=== PATIENT | male | born 1970 | race Caucasian/White ===

== ENCOUNTER 2018-09-09 10:02 | Outpatient (CLI) | payer BC | END 2018-09-09 10:03 | disposition home or self-care (01) | LOC: CTENTCT 10:02 | PROVIDERS: ATTEND Otolaryngology Plastic Surgery within the Head & Neck | DX: J32.8 Other chronic sinusitis (principal) | CPT/HCPCS: 70486 ==

== ENCOUNTER 2018-09-29 21:35 | Inpatient (IN) | payer BC ==
--- NOTE | 2018-09-29 22:11 | RAD ---
EXAM: Portable chest PROVIDED CLINICAL HISTORY: Chest pain COMPARISON: None FINDINGS: Cardiac and mediastinal silhouette is within normal limits. No focal consolidation, pleural fluid or pneumothorax evident. IMPRESSION: No evidence for an acute cardiopulmonary process.
[2018-09-29 22:15] LABS: #Basophils 0.1 thou/uL (0.0-0.2); #Eosinphils 0.3 thou/uL (0.0-0.7); #Lymphocytes 2.7 thou/uL (1.20-3.40); #Monocytes 1.1 thou/uL (0.11-0.59); #Neutrophils 7.6 thou/uL (1.40-6.50); %Basophils 0.8 % (0.0-1.0); %Eosinophils 2.6 % (0.0-10.0); %Lymphocytes 22.7 % (21.0-51.0); %Monocytes 9.1 % (0.0-10.0); %Neutrophils 64.7 % (42.0-75.0); Hemoglobin 16.6 g/dL (14.0-18.0); Mean Corpuscular HGB CONC 33.5 g/dL (32.0-36.0); Mean Corpuscular Volume 95.5 fL (78.0-98.0); Platelet Count 245 thou/uL (130-400); RBC Distribution Width 11.6 % (11.5-14.5); Red Blood Cell (RBC) Count 5.19 mill/uL (4.70-6.10); White Blood Cell (WBC) Count 11.7 thou/uL (4.8-10.8)
[2018-09-29 22:39] LABS: ALT (SGPT) 17 U/L (8-55); AST (SGOT) 18 U/L (5-34); Albumin 4.4 g/dL (3.5-5.0); Alkaline Phosphatase 83 U/L (40-150); Anion Gap 11 mmol/L (10-20); BUN (Urea Nitrogen) 17 mg/dL (8.9-20.6); Bilirubin, Total 0.3 mg/dL (0.2-1.2); CK (CPK) 101 U/L (30-200); Calc. Creatinine Clearance 0 mL/min (70-130); Calcium 9.4 mg/dL (7.8-10.44); Carbon Dioxide 28 mmol/L (22-29); Chloride 103 mmol/L (98-107); Estimated GFR-MDRD 81; Globulin 2.9 g/dL (2.4-3.5); Glucose 94 mg/dL (70-105); Lipase 42 U/L (8-78); Potassium 3.7 mmol/L (3.5-5.1); Protein, Total 7.3 g/dL (6.0-8.3); Sodium 138 mmol/L (136-145)
[2018-09-30 00:37] VITALS: BMI 26.8
[2018-09-30 01:40] LABS: Troponin I Less than 0.010 ng/mL (< 0.028)
[2018-09-30 05:06] LABS: Troponin I Less than 0.010 ng/mL (< 0.028)
[2018-09-30] MEDS ORDERED: Acetaminophen 325 MG TAB PO PRN ×2 (08:55→16:19)
[2018-09-30] MEDS ORDERED: Famotidine/PF 20 mg/2ml Vial SLOW IVP SCH (09:00)
[2018-09-30] MEDS ORDERED: Azithromycin 250 MG TAB PO SCH (09:00)
[2018-09-30] MEDS ORDERED: Enoxaparin Sodium 40 MG/0.4 ML SYRINGE SC SCH (09:00)
[2018-09-30] MEDS ORDERED: Famotidine 20 MG TAB PO SCH (09:00)
[2018-09-30] MEDS ORDERED: Aspirin Chewable 81 MG TAB PO SCH (09:46)
[2018-09-30 09:47] LABS: Cardiac Risk 3.4 (Less than 4.5)
[2018-09-30] MEDS ORDERED: Diazepam 5 MG TAB PO SCH (10:00)
[2018-09-30] MEDS ORDERED: Sodium Chloride 0.9% 1,000 ML IV SCH (10:00)
--- NOTE | 2018-09-30 10:01 | HP ---
PRIMARY CARE PHYSICIAN: Walt Wells MD CHIEF COMPLAINT: Chest pain, high blood pressure. HISTORY OF PRESENT ILLNESS: Mr. Lawson is a 48-year-old male, who reports that he has been having intermittent chest pain primarily when he lies down at night. Reports that he was on a small amount of blood pressure medications several years ago, but with lifestyle modifications, he was able to come off that. reports that his blood pressure is in the 120s systolically typically. He went to bed last night around 8, noticed that he felt really weird. He says there is chest pressure that radiates up his jaw and across his chest. He denied any shortness of breath with it. Denied any nausea, any diaphoresis. Reports this is typical for him when he has these episodes. Family thought that initially he was having some GI, GERD type symptoms, but it has not been getting better with the Nexium the day he has been taking. Last night when he had this episode he said it was worse than normal. He got up his , took his blood pressure. 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 They were going to the emergency room and stopped by the local fire station, hooked him up to the EKG. She saw no changes at that point. His pressure was still high, so they loaded him up into the ambulance and brought him to [facility]. In the ambulance ride, they gave him an aspirin and some nitroglycerin and that brought his blood pressure down. In the emergency room, the EKG, normal sinus rhythm, beats per minute 95. T-waves V2 are biphasic. Troponins x3 undetectable. Lab largely unremarkable. But due to the EKG findings and for the [facility], the patient was admitted for a Cardiology consult and further risk stratification. PAST MEDICAL HISTORY: Seasonal allergies. Recently, had bilateral tubes placed in his ears for congestion. Started allergy shots. Hypertension, which resolved after lifestyle changes. PAST SURGICAL HISTORY: Tubes replaced. FAMILY HISTORY: Both mom and dad have coronary artery disease, hypertension. SOCIAL HISTORY: He is a former smoker, but stopped more than 10 years ago. No alcohol or drugs. REVIEW OF SYSTEMS: Chest pain primarily when he lies down, intermittent over the last 2 months. All other systems were reviewed and are negative unless mentioned in the HPI. PHYSICAL EXAMINATION: VITAL SIGNS: Blood pressure is 130/92, pulse is 83, respirations are 19, temperature is 98.5, O2 saturations are 95% on room air. CONSTITUTIONAL: The patient is in no apparent distress. He is alert and oriented to person, place, and time. HEENT: Head is atraumatic and normocephalic. Eyes; eyelids are normal to inspection. Pupils are equally round and reactive to light. ENT; mouth exam is normal. Mucous membranes are moist. NECK: Normal range of motion. Trachea is midline. RESPIRATORY: Chest, breath sounds are clear. Chest movement is symmetrical. CARDIOVASCULAR: Regular heart rate and rhythm. Heart sounds are normal. ABDOMEN: Nontender. Bowel sounds are heard. BACK: Normal range of motion. Normal inspection. No CVA tenderness. EXTREMITIES: Upper extremities, normal inspection. Normal range of motion. Radial pulses are normal. Lower extremity, normal inspection, normal range of motion. Pedal pulses are equal. There is no edema noted. NEURO: The patient is oriented to person, place, and time. Speech is normal. No focal motor or sensory deficits. PSYCHIATRIC: He has a normal affect. ASSESSMENT AND PLAN: 1. Chest pain, changes on the EKG. Troponins x3 are undetectable. We have asked Dr. Merino to consult to help us risk stratify due to the type of EKG changes. We will check fasting lipids, TSH. 2. History of hypertension, but he has not been on any medications for several years. We will trend. 3. Gastrointestinal and deep venous thrombosis prophylaxis have been started. 4. Hospital course dependent on clinical findings. Job ID: [id number]
[2018-09-30] MEDS ORDERED: Aspirin Chewable 81 MG TAB ONE (10:02)
--- NOTE | 2018-09-30 10:30 | CON ---
DATE OF CONSULTATION: 09/30/2018 REASON FOR CONSULTATION: Chest pain, abnormal EKG. HISTORY OF PRESENT ILLNESS: Mr. Ernesto Lawson is a 48-year-old gentleman. The patient has been having chest pain for several weeks, it is substernal and goes into his arms. He had an episode last night that was relatively intense and finally resolved. He had another episode early this morning while here in the hospital. The patient otherwise has been active and healthy. PAST MEDICAL HISTORY: The past history is esophageal reflux. He is on proton pump inhibitors. He is on Z-Pawan for some nasal congestion. FAMILY HISTORY: His father had heart disease in his early 60s. SOCIAL HISTORY: He smoked in the remote past, but none recently. 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 No diabetes. No other medicines. ALLERGIES: NONE KNOWN. REVIEW OF SYSTEMS: CONSTITUTIONAL: No significant weight gain or loss. VISION: No changes. HEARING: No changes. PULMONARY: No cough or wheezing. GASTROINTESTINAL: No nausea, vomiting, or diarrhea. SKIN: No rashes. NEUROLOGIC: No unilateral weakness or numbness. PSYCHIATRIC: No unusual depression or anxiety. HEMATOLOGIC: No unusual bruising. PHYSICAL EXAMINATION: GENERAL: This is a pleasant 48-year-old gentleman, resting comfortably, in no distress. VITAL SIGNS: Blood pressure 121/85. Pulse 75 and regular. LUNGS: Clear. CARDIAC: Normal S1 and normal S2. ABDOMEN: Soft and nontender. EXTREMITIES: Warm and dry. No clubbing, cyanosis, or edema. He has good femoral and popliteal pulses. Pedal pulses are palpable. SKIN: Warm and dry. PERTINENT LABORATORY: Cardiac enzymes were negative. LDL cholesterol from 2015 was 109. EKG did reveal biphasic T-waves in V2, otherwise normal EKG. ASSESSMENT: 1. Substernal pain going into both arms were highly suspicious for unstable angina. 2. Abnormal EKG. 3. Positive family history of heart disease. 4. Remote history of smoking. PLAN: Proceed to cardiac catheterization, especially in view of the recurrent pain this morning. Discussed risk of stroke, heart attack, iodine allergy, loss of blood supply to leg or kidney, stent thrombosis, stent restenosis, vessel perforation. He understands and wished to proceed. Job ID: [id number]
[2018-09-30] MEDS ORDERED: Fentanyl 100 MCG/2 ML VIAL ONE ×2 (11:00→16:26)
[2018-09-30] MEDS ORDERED: Midazolam HCl 2 mg/2 ml Vial ONE (11:00)
[2018-09-30] MEDS ORDERED: Nitroglycerin 0.4 MG TAB (25 Tab Bottle) SL PRN (11:24)
[2018-09-30] MEDS ORDERED: Sodium Chloride 0.9% 200 ML IV PRN (11:24)
[2018-09-30] MEDS ORDERED: Acetaminophen/Codeine 30-300mg Tablet PO PRN ×2 (11:24)
[2018-09-30] MEDS ORDERED: Lidocaine 1% (PF) 30 ML VIAL ONE (11:31)
[2018-09-30] MEDS ORDERED: Nitroglycerin 100MG/250ML BOT 250 ML ONE (11:31)
[2018-09-30] MEDS ORDERED: Hydrocortisone Sod Succ/PF 100 mg/2 ml Vial ONE (11:31)
[2018-09-30] MEDS ORDERED: diphenhydrAMINE 50 MG/ML VIAL ONE (11:31)
[2018-09-30] MEDS ORDERED: Albumin 5% 0 ML ONE (11:41)
[2018-09-30] MEDS ORDERED: Heparin 10,000 UNITS/1 ML VIAL 30,000 UNITS in Sodium Chloride 0.9% 1,000 ML FS SCH (12:00)
--- NOTE | 2018-09-30 12:17 | CON ---
DATE OF CONSULTATION: HISTORY OF PRESENT ILLNESS: This is a 48-year-old gentleman with presentation of chest and neck pain with negative cardiac enzymes and perhaps biphasic T-wave in V2. Because of his symptoms of pressure going into his neck and arms, he underwent cardiac catheterization today demonstrating a high-grade lesion of his LAD. PAST MEDICAL HISTORY: Includes gastroesophageal reflux disease, nasal congestion and allergies and remote smoking history. He has had some mild hypertension that was initially treated; however, with dietary changes. He has not required any medicine. PAST SURGICAL HISTORY: Includes PE tubes placed. SOCIAL HISTORY: He is . 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 REVIEW OF SYSTEMS: Primarily upper airway congestion for which he has begun some shots for allergies and was scheduled to have some nasal surgery next month with Dr. Echevarria. PHYSICAL EXAMINATION: GENERAL: On examination, he is alert and cooperative gentleman, appearing his stated age. NECK: No carotid bruits. LUNGS: Clear to auscultation. CARDIAC: Regular rate and rhythm. No murmurs. ABDOMEN: Soft, nontender. No masses. No organomegaly. EXTREMITIES: He has a dressing on the right groin with palpable pedal pulses. No peripheral edema. IMAGING STUDIES: I have reviewed his cardiac catheterization. PLAN: At this time is for coronary artery bypass grafting, ACOSTA to the LAD, possible off pump and informed consent has been obtained. Job ID: [id number]
[2018-09-30] MEDS ORDERED: Iopamidol 370 76% 100 ML VIAL ONE (12:32)
[2018-09-30] MEDS ORDERED: Aminocaproic Acid 5 GM/20 ML VIAL ONE (14:03)
[2018-09-30] MEDS ORDERED: Heparin 30,000 units/30 ml VIAL ONE (14:03)
[2018-09-30] MEDS ORDERED: Papaverine 60 MG/2 ML VIAL ONE (14:03)
[2018-09-30] MEDS ORDERED: PHENYLEPHRINE-NS 100 MCG/ML 10 ML SYRINGE ONE (14:03)
[2018-09-30] MEDS ORDERED: ePHEDrine 50 MG/ML VIAL ONE (14:03)
[2018-09-30] MEDS ORDERED: PROPOFOL 200 MG/20 ML VIAL ONE (14:03)
[2018-09-30] MEDS ORDERED: Calcium Chloride 1 GM/10 ML Abboject SYRINGE ONE (14:03)
[2018-09-30] MEDS ORDERED: Protamine Sulfate 250 MG/25 ML VIAL ONE (14:03)
[2018-09-30] MEDS ORDERED: Rocuronium Bromide 10 MG/ML (10ML VIAL) ONE (14:03)
[2018-09-30] MEDS ORDERED: Lidocaine 1% PF 5 ML VIAL ONE (14:03)
[2018-09-30] MEDS ORDERED: Thrombin 5000 UNITS/5 ML VIAL ONE (14:03)
[2018-09-30 16:11] LABS: Actual Bicarbonate (HCO3a) 22.1 mEq/L (22-28); Base Excess (BEa) -5.1 mEq/L (-2.0 to +3.0); CO2 Tension 49.5 mmHg (35.0-45.0); Calcium, Ionized 1.12 mmol/L (1.12-1.30); Carboxyhemoglobin (COHb) 1.2 gm% (0.0-3.0); Hemoglobin (Hb) 14.6 g/dL (14.0-18.0); O2 Tension (PaO2) 102.5 mmHg (80.0-100.0); Potassium - ABG Lab 4.02 mmol/L (3.70-5.30); pH, Arterial 7.27 (7.35-7.45)
[2018-09-30 16:12] LABS: Puncture Site ALINE
[2018-09-30 16:13] LABS: ALV-art Gradient 192.125 (0-20)
[2018-09-30] MEDS ORDERED: hydrALAZINE 20 MG/ML VIAL SLOW IVP PRN (16:19)
[2018-09-30] MEDS ORDERED: Promethazine HCl 25 MG/ML VIAL IM PRN (16:19)
[2018-09-30] MEDS ORDERED: Fentanyl 100 MCG/2 ML VIAL SLOW IVP PRN (16:19)
[2018-09-30] MEDS ORDERED: Bisacodyl 10 MG SUPP PR PRN (16:19)
[2018-09-30] MEDS ORDERED: HYDROcodone/Acetaminophen 5/325 mg Tablet PO PRN (16:19)
[2018-09-30] MEDS ORDERED: Bisacodyl 5 MG TAB PO PRN (16:19)
[2018-09-30] MEDS ORDERED: niCARdipine 25 MG in Sodium Chloride 0.9% 250 ML 250 ML IVPB PRN (16:19)
[2018-09-30] MEDS ORDERED: Norepinephrine 8 MG in Sodium Chloride 0.9% 250 ML 242 ML IVPB PRN (16:19)
[2018-09-30] MEDS ORDERED: Hetastarch 6% 500 ML 500 ML IVPB PRN (16:19)
[2018-09-30] MEDS ORDERED: Post-Op Insulin Drip Protocol IVPB ONE (16:19)
[2018-09-30] MEDS ORDERED: DOPamine 400 MG/D5W 250 ML 250 ML IVPB PRN (16:19)
[2018-09-30] MEDS ORDERED: Morphine 2 MG/ML SYRINGE SLOW IVP PRN (16:19)
[2018-09-30] MEDS ORDERED: Mag-Al 1200 mg/1200 mg/30 ML UDCUP PO PRN (16:19)
[2018-09-30] MEDS ORDERED: Potassium Chloride 20 MEQ/100 ML PREMIX BAG IVPB PRN (16:19)
[2018-09-30] MEDS ORDERED: Nitroglycerin 50 MG/250 ML BOT 250 ML IVPB PRN (16:19)
[2018-09-30] MEDS ORDERED: Guaifenesin DM 100-10/5 ML UDCUP PO PRN (16:19)
[2018-09-30] MEDS ORDERED: Nitroglycerin 50 MG/250 ML BOT 250 ML ONE (16:24)
[2018-09-30] MEDS: Fentanyl 100 MCG/2 ML VIAL SLOW IVP PRN ×3 (16:29→22:10)
[2018-09-30 16:30] LABS: #Eosinphils 0.1 thou/uL (0.0-0.7); #Monocytes 0.7 thou/uL (0.11-0.59); %Basophils 0.1 % (0.0-1.0); %Eosinophils 0.4 % (0.0-10.0); %Lymphocytes 6.2 % (21.0-51.0); %Neutrophils 89.4 % (42.0-75.0); Hemoglobin 13.9 g/dL (14.0-18.0); Mean Corpuscular HGB CONC 32.8 g/dL (32.0-36.0); Mean Corpuscular Hemoglobin 31.4 pg (27.0-31.0); Mean Corpuscular Volume 95.7 fL (78.0-98.0); Mean Platelet Volume 8.2 fL (7.4-10.4); Platelet Count 195 thou/uL (130-400); RBC Distribution Width 11.3 % (11.5-14.5); Red Blood Cell (RBC) Count 4.42 mill/uL (4.70-6.10); White Blood Cell (WBC) Count 16.8 thou/uL (4.8-10.8)
[2018-09-30] MEDS ORDERED: HUMULIN R 100 UNITS in Sodium Chloride 0.9% 100 ML IVPB SCH (16:33)
[2018-09-30] MEDS ORDERED: Dextrose 50% Abboject 50 ML SYRINGE SLOW IVP PRN (16:33)
[2018-09-30] MEDS ORDERED: Dextrose 5% in Water 1,000 ML IV PRN (16:33)
[2018-09-30] MEDS ORDERED: Insulin Regular 300 UNITS/3 ML VIAL SC PRN (16:33)
[2018-09-30 16:38] LABS: INR-International Normal Ratio 1.1; PTT 27.9 SEC (22.9-36.1); Prothrombin Time 14.1 SEC (12.0-14.7)
[2018-09-30 16:45] LABS: Anion Gap 11 mmol/L (10-20); BUN (Urea Nitrogen) 12 mg/dL (8.9-20.6); Calc. Creatinine Clearance 128 mL/min (70-130); Calcium 8.3 mg/dL (7.8-10.44); Carbon Dioxide 23 mmol/L (22-29); Chloride 107 mmol/L (98-107); Estimated GFR-MDRD Greater than 90; Glucose 163 mg/dL (70-105); Potassium 3.9 mmol/L (3.5-5.1); Sodium 137 mmol/L (136-145)
--- NOTE | 2018-09-30 16:51 | EKG ---
Test Reason : STAT Blood Pressure : / mmHG Vent. Rate : 072 BPM Atrial Rate : 072 BPM P-R Int : 160 ms QRS Dur : 092 ms QT Int : 392 ms P-R-T Axes : 046 024 057 degrees QTc Int : 429 ms Normal sinus rhythm Normal ECG No previous ECGs available Confirmed by DR. Nelda RAMIREZ ([id number]) on 09/30/2018 4:51:03 PM Referred By: COGENT Confirmed By:DR. Nelda RAMIREZ
[2018-09-30 17:26] LABS: Actual Bicarbonate (HCO3a) 19.7 mEq/L (22-28); Base Excess (BEa) -6.3 mEq/L (-2.0 to +3.0); CO2 Tension 40.8 mmHg (35.0-45.0); Calcium, Ionized 1.11 mmol/L (1.12-1.30); Carboxyhemoglobin (COHb) 0.9 gm% (0.0-3.0); Hemoglobin (Hb) 15.1 g/dL (14.0-18.0); Potassium - ABG Lab 3.81 mmol/L (3.70-5.30)
[2018-09-30 17:27] LABS: Puncture Site ALINE
--- NOTE | 2018-09-30 17:33 | RAD ---
CHEST ONE VIEW: 09/30/18 HISTORY: Post open heart surgery. COMPARISON: Radiograph of prior day. FINDINGS: The patient is now intubated. Endotracheal tube tip just above the level of the lori approximately 1 cm. There are small effusions. Mild compressive atelectasis both lower lobes. Subclavian central v enous catheter tip sits at the right atrium. No pneumothorax. Multiple mediastinal drains are present. IMPRESSION: 1. Endotracheal tube tip above the lori approximately 1 cm. 2. Layering bilateral pleural effusions. 3. Expected postoperative findings. POS: HOME
[2018-09-30] MEDS: Magnesium 2 GM/50 ML 2 GM in Premix Bag 1 BAG IVPB SCH ×2 (17:52→17:53)
[2018-09-30] MEDS: Ketorolac Tromethamine 30 MG/ML VIAL IVP SCH ×2 (18:12→23:57)
[2018-09-30] MEDS: Lactated Ringer's 1,000 ML IV SCH (18:14)
[2018-09-30] MEDS ORDERED: Simvastatin 20 MG TAB PO SCH (21:00)
[2018-09-30] MEDS: Famotidine/PF 20 mg/2ml Vial SLOW IVP SCH (21:01)
[2018-09-30] MEDS: Ondansetron PF 4 MG/2 ML Vial IVP PRN (21:26)
[2018-09-30] MEDS: CEFAZOLIN 2 GM in Premix Bag 1 BAG IVPB SCH (22:08)
[2018-09-30 22:29] LABS: Potassium 4.1 mmol/L (3.5-5.1)
[2018-10-01] MEDS: Fentanyl 100 MCG/2 ML VIAL SLOW IVP PRN (02:24)
[2018-10-01 03:54] LABS: Anion Gap 11 mmol/L (10-20); BUN (Urea Nitrogen) 12 mg/dL (8.9-20.6); Calc. Creatinine Clearance 146 mL/min (70-130); Calcium 8.7 mg/dL (7.8-10.44); Carbon Dioxide 25 mmol/L (22-29); Chloride 107 mmol/L (98-107); Estimated GFR-MDRD Greater than 90; Glucose 127 mg/dL (70-105); Potassium 4.3 mmol/L (3.5-5.1); Sodium 139 mmol/L (136-145)
[2018-10-01 04:31] LABS: Band 11 % (5-11); Hemoglobin 13.5 g/dL (14.0-18.0); Lymphocytes 9 % (21-51); MDiff Complete? YES; Mean Corpuscular HGB CONC 31.7 g/dL (32.0-36.0); Mean Corpuscular Hemoglobin 30.2 pg (27.0-31.0); Mean Corpuscular Volume 95.2 fL (78.0-98.0); Mean Platelet Volume 8.4 fL (7.4-10.4); Monocytes 4 % (0-10); Neutrophil 75 % (42-75); Platelet Count 235 thou/uL (130-400); RBC Distribution Width 11.4 % (11.5-14.5); Reactive Lymphocytes 1 % (0-10); Red Blood Cell (RBC) Count 4.47 mill/uL (4.70-6.10); White Blood Cell (WBC) Count 20.3 thou/uL (4.8-10.8)
[2018-10-01] MEDS: Ketorolac Tromethamine 30 MG/ML VIAL IVP SCH ×4 (06:09→23:43)
--- NOTE | 2018-10-01 08:01 | RAD ---
Chest one view HISTORY: Chest pain. COMPARISON: 09/30/2018. FINDINGS: Cardiac silhouette is magnified and upper limits of normal in size. Pulmonary vasculature i s upper limits of normal and accentuated by shallow inspiration. Patient is rotated rightward. Tracheal catheter no longer visualized remains in place. Postoperative changes mediastinum are appare nt. No evidence of pneumothorax. IMPRESSION: Interval extubation. Otherwise stable postoperative appearance of the chest.
--- NOTE | 2018-10-01 08:43 | OP ---
DATE OF PROCEDURE: 09/30/2018 PREOPERATIVE DIAGNOSIS: Coronary artery disease. PROCEDURES PERFORMED: Off-pump coronary artery bypass graft x1, left internal mammary artery to left anterior descending, good quality left internal mammary artery, good flow, good quality left anterior descending, distal to the last diagonal probably measured 2 mm. DELIVERY ANALYST: Daniel Prince MD TRANSFUSION: None. DESCRIPTION OF PROCEDURE: After adequate anesthesia had been obtained, midline sternotomy was performed after prepping and draping. The right pleura was entered distally and closed over a drain tube at the conclusion of the case. The left pleura was entered in one area while harvesting the left internal mammary artery. A 15,000 units of heparin were given after the mammary harvest and it was divided distally, treated with intraluminal papaverine and passed posterior to the thymus gland through an incision in the pericardium. A lap was placed behind the heart. Following which, the octopus retractor was used to stabilize the LAD and a loop was placed proximal to the diagonal and then, an anastomosis completed with a mammary to LAD using running 7-0 Prolene suture. After completing the suture line, flow was restored. Mammary pedicle was secured to the myocardium. Protamine was given to reverse the heparin. Following which, pericardium was reapproximated at the diaphragm. The sternum was reapproximated over mediastinal and bilateral pleural drains with #7 interrupted wire using vancomycin paste on the sternal edges, platelet rich blood and platelet poor plasma. Subcutaneous tissue and skin were closed in layers. Job ID: [id number]
[2018-10-01] MEDS: Lactated Ringer's 1,000 ML IV SCH ×2 (08:50→19:31)
[2018-10-01] MEDS: Famotidine/PF 20 mg/2ml Vial SLOW IVP SCH ×2 (08:50→20:49)
[2018-10-01] MEDS ORDERED: Aspirin Chewable 81 MG TAB PO SCH (09:00)
[2018-10-01] MEDS: HYDROcodone/Acetaminophen 5/325 mg Tablet PO PRN ×3 (09:32→20:46)
--- NOTE | 2018-10-01 09:34 | PRG ---
DATE OF SERVICE: 10/01/2018 SUBJECTIVE: Mr. Lawson underwent bypass surgery yesterday. He is doing great today. OBJECTIVE: VITAL SIGNS: His blood pressure is in the one teens systolic, pulse is 90s and it is regular. LUNGS: Clear. CARDIAC: Normal S1, normal S2. ABDOMEN: Soft, nontender. EXTREMITIES: There is no edema. ASSESSMENT: 1. Status post coronary artery bypass grafting, internal mammary artery to the left anterior descending. 2. History of hypercholesterolemia. PLAN: 1. Change to Crestor. 2. Aspirin. 3. Beta-blockers later when tolerated. Job ID: [id number]
--- NOTE | 2018-10-01 10:48 | PDOC.PN ---
- Subjective Encounter Start Date: 10/01/18 Encounter Start Time: 10:46 Mr. Lawson was seen today in follow-up of Chest pain with acute coronary syndrome. He is post CABG. He notes some soreness in his chest, but otherwise he is ok. - Objective MAR Reviewed: Yes Vital Signs & Weight: Vital Signs (12 hours) Temp Pulse Ox 10/01/18 08:00 98.6 F 10/01/18 07:53 95 10/01/18 07:00 98.6 F 10/01/18 04:00 98.7 F 10/01/18 00:00 97.6 F Weight Weight 176 lb 4.8 oz Most Recent Monitor Data Heart Rate from ECG 97 NIBP 130/85 NIBP BP-Mean 100 Respiration from ECG 34 SpO2 96 I&O: 09/30/18 10/01/18 10/02/18 06:59 06:59 06:59 Intake Total 240 1059.1 1140 Output Total 275 1050 170 Balance -35 9.1 970 Result Diagrams: 10/01/18 03:10 10/01/18 03:10 Additional Labs: Accuchecks 10/01/18 10/01/18 10/01/18 06:01 05:06 04:07 POC Glucose 141 H 118 H 107 10/01/18 10/01/18 10/01/18 03:13 02:16 01:00 POC Glucose 124 H 106 113 H 10/01/18 09/30/18 09/30/18 00:02 23:07 22:08 POC Glucose 110 103 133 H 09/30/18 09/30/18 09/30/18 21:08 20:15 19:08 POC Glucose 125 H 156 H 180 H 09/30/18 09/30/18 09/30/18 16:04 15:03 14:36 POC Glucose 153 H 137 H 143 H Phys Exam - Physical Examination HEENT: PERRLA Respiratory: no wheezing + rales at the bases, and decreased breath sounds at the bases Cardiovascular: RRR, no significant murmur, no rub Gastrointestinal: soft, non-tender, no distention, positive bowel sounds Musculoskeletal: no edema, pulses present Neurological: non-focal Dx/Plan (1) Acute coronary syndrome Code(s): I24.9 - ACUTE ISCHEMIC HEART DISEASE, UNSPECIFIED Status: Acute (2) Hypertension Code(s): I10 - ESSENTIAL (PRIMARY) HYPERTENSION Status: Chronic (3) S/P CABG x 1 Code(s): Z95.1 - PRESENCE OF AORTOCORONARY BYPASS GRAFT Status: Acute - Plan * CAD- s/p CABG- he is hemodynamically stable * HTN- blood pressure is stable on a cardene drip * Dyslipidemia- patient has had information from the long chain dyeing machine operator given to him, and has been placed on Crestor * Continue insulin drip for glycemic control- will check HGB A1C
[2018-10-01] MEDS: CEFAZOLIN 2 GM in Sodium Chloride 0.9% 100 ML IVPB SCH ×2 (13:35→20:56)
[2018-10-01] MEDS: Ondansetron PF 4 MG/2 ML Vial IVP PRN (13:45)
--- NOTE | 2018-10-01 17:09 | EKG ---
Test Reason : Blood Pressure : / mmHG Vent. Rate : 093 BPM Atrial Rate : 093 BPM P-R Int : 136 ms QRS Dur : 086 ms QT Int : 382 ms P-R-T Axes : 055 021 062 degrees QTc Int : 474 ms Normal sinus rhythm Nonspecific T wave abnormality Abnormal ECG When compared with ECG of 30-SEP-2018 02:12, Nonspecific T wave abnormality, worse in Anterolateral leads Confirmed by DR. Nelda RAMIREZ ([id number]) on 10/01/2018 5:09:18 PM Referred By: Confirmed By:DR. Nelda RAMIREZ
[2018-10-01] MEDS: Rosuvastatin 20 MG TAB PO SCH (20:48)
[2018-10-02] MEDS: Ketorolac Tromethamine 30 MG/ML VIAL IVP SCH (04:52)
[2018-10-02 05:42] LABS: #Basophils 0.1 thou/uL (0.0-0.2); #Eosinphils 0.1 thou/uL (0.0-0.7); #Lymphocytes 2.1 thou/uL (1.20-3.40); #Monocytes 1.6 thou/uL (0.11-0.59); %Basophils 0.4 % (0.0-1.0); %Eosinophils 0.6 % (0.0-10.0); %Lymphocytes 14.4 % (21.0-51.0); %Monocytes 10.4 % (0.0-10.0); %Neutrophils 74.1 % (42.0-75.0); Hemoglobin 13.4 g/dL (14.0-18.0); Mean Corpuscular HGB CONC 32.2 g/dL (32.0-36.0); Mean Corpuscular Hemoglobin 31.4 pg (27.0-31.0); Mean Corpuscular Volume 97.5 fL (78.0-98.0); Platelet Count 208 thou/uL (130-400); RBC Distribution Width 11.7 % (11.5-14.5); Red Blood Cell (RBC) Count 4.27 mill/uL (4.70-6.10); White Blood Cell (WBC) Count 14.9 thou/uL (4.8-10.8)
[2018-10-02 05:57] LABS: Hemoglobin A1c 5.6 % (4.0-6.0)
[2018-10-02 06:03] LABS: Anion Gap 11 mmol/L (10-20); BUN (Urea Nitrogen) 14 mg/dL (8.9-20.6); Calc. Creatinine Clearance 140 mL/min (70-130); Carbon Dioxide 28 mmol/L (22-29); Chloride 103 mmol/L (98-107); Estimated GFR-MDRD Greater than 90; Glucose 108 mg/dL (70-105); Potassium 4.1 mmol/L (3.5-5.1); Sodium 138 mmol/L (136-145)
--- NOTE | 2018-10-02 06:53 | PRG ---
DATE OF SERVICE: 10/02/2018 The patient with stable vital signs, blood pressure 110 to 120, heart rate 70s. Chest tube output minimal and 3 tubes removed. Lungs are clear. Plan today is to remove the Yuan, transfer to telemetry, and increase his walking. No other major medicine changes other than adjust pain medicine. Job ID: [id number]
[2018-10-02] MEDS ORDERED: Acetaminophen 325 MG TAB PO PRN (07:02)
[2018-10-02] MEDS ORDERED: Ondansetron PF 4 MG/2 ML Vial IVP PRN (07:02)
[2018-10-02] MEDS ORDERED: Fentanyl 100 MCG/2 ML VIAL SLOW IVP PRN (07:02)
[2018-10-02] MEDS ORDERED: Bisacodyl 5 MG TAB PO PRN (07:02)
[2018-10-02] MEDS ORDERED: Nitroglycerin 0.4 MG TAB (25 Tab Bottle) SL PRN (07:02)
[2018-10-02] MEDS ORDERED: Mineral Oil ENEMA PR PRN (07:02)
[2018-10-02] MEDS ORDERED: Mag-Al 1200 mg/1200 mg/30 ML UDCUP PO PRN (07:02)
[2018-10-02] MEDS ORDERED: Bisacodyl 10 MG SUPP PR PRN (07:02)
[2018-10-02] MEDS ORDERED: Guaifenesin DM 100-10/5 ML UDCUP PO PRN (07:02)
[2018-10-02] MEDS: Aspirin 325 mg Enteric Coated Tablet PO SCH (08:10)
[2018-10-02] MEDS: Famotidine 20 MG TAB PO SCH ×2 (08:10→20:55)
[2018-10-02] MEDS: Polyethylene Glycol 3350 17 GM Packet PO SCH (08:10)
[2018-10-02] MEDS: Ibuprofen 800 MG TAB PO SCH ×3 (08:10→20:55)
[2018-10-02] MEDS: CEFAZOLIN 2 GM in Premix Bag 1 BAG IVPB SCH (08:53)
--- NOTE | 2018-10-02 10:09 | RAD ---
PORTABLE CHEST: COMPARISON: Prior day's exam. HISTORY: Postop open heart surgery. FINDINGS: The heart size is enlarged. There are postop sternotomy changes. A right subclavian line is present . Pleural and parenchymal changes in both lung bases are clear. IMPRESSION: Stable exam. POS: NAFISA
[2018-10-02] MEDS: HYDROcodone/Acetaminophen 5/325 mg Tablet PO PRN ×2 (11:49→20:54)
--- NOTE | 2018-10-02 14:13 | PDOC.PN ---
- Subjective Encounter Start Date: 10/02/18 Encounter Start Time: 14:11 Mr. Laswon was seen today in follow-up post CABG. He says he feeels fine. He is a bit tired however. - Objective MAR Reviewed: Yes Vital Signs & Weight: Vital Signs (12 hours) Temp Pulse Pulse BP BP Pulse Ox 10/02/18 12:12 94 91 140/81 138/81 10/02/18 09:10 85 85 124/72 120/75 10/02/18 07:17 95 10/02/18 07:00 98.0 F 10/02/18 03:00 98.2 F Weight Weight 178 lb 12.718 oz Most Recent Monitor Data Heart Rate from ECG 87 NIBP 110/71 NIBP BP-Mean 84 Respiration from ECG 18 SpO2 89 I&O: 10/01/18 10/02/18 10/03/18 06:59 06:59 06:59 Intake Total 1059.1 1804 Output Total 1050 1095 0 Balance 9.1 709 0 Result Diagrams: 10/02/18 05:25 10/02/18 05:25 Phys Exam - Physical Examination HEENT: PERRLA Respiratory: no wheezing, no rales, no rhonchi, clear to auscultation bilateral Cardiovascular: RRR, no significant murmur, no rub Gastrointestinal: soft, non-tender, no distention, positive bowel sounds Musculoskeletal: no edema, pulses present Dx/Plan (1) Acute coronary syndrome Code(s): I24.9 - ACUTE ISCHEMIC HEART DISEASE, UNSPECIFIED Status: Acute (2) Hypertension Code(s): I10 - ESSENTIAL (PRIMARY) HYPERTENSION Status: Chronic (3) S/P CABG x 1 Code(s): Z95.1 - PRESENCE OF AORTOCORONARY BYPASS GRAFT Status: Acute - Plan * Acute coronary syndrome- - he is s/p CABG, and clinically stable. His chest tubes have been removed, as well as the Yuan catheter. He has been up walking with Cardiac Rehab today * HTN- blood pressure is stable * Dyslipidemia- continue Crestor * .
--- NOTE | 2018-10-02 14:52 | EKG ---
Test Reason : Blood Pressure : / mmHG Vent. Rate : 095 BPM Atrial Rate : 095 BPM P-R Int : 142 ms QRS Dur : 084 ms QT Int : 354 ms P-R-T Axes : 032 -04 090 degrees QTc Int : 444 ms Normal sinus rhythm Normal ECG Confirmed by DONALD ARGUELLO M.D. ([id number]), editor sound CAMERON VALLEJO ([id number]) on 10/02/2018 2:52:05 PM Referred By: Confirmed By:DONALD ARGUELLO M.D.
[2018-10-02] MEDS ORDERED: Ibuprofen 600 MG TAB PO PRN (16:19)
[2018-10-02] MEDS: Rosuvastatin 20 MG TAB PO SCH (20:54)
[2018-10-03] MEDS: Ibuprofen 800 MG TAB PO SCH ×2 (05:34→15:36)
[2018-10-03] MEDS: HYDROcodone/Acetaminophen 5/325 mg Tablet PO PRN ×3 (05:34→18:11)
[2018-10-03] MEDS ORDERED: Sodium Chloride 0.9% 10 ML ONE (07:46)
[2018-10-03] MEDS: Polyethylene Glycol 3350 17 GM Packet PO SCH (08:41)
[2018-10-03] MEDS: Aspirin 325 mg Enteric Coated Tablet PO SCH (08:42)
[2018-10-03] MEDS: Famotidine 20 MG TAB PO SCH ×2 (08:42→20:38)
[2018-10-03] MEDS ORDERED: Fluticasone Propionate Nasal Spray 16 gm Bottle NASAL SCH ×2 (11:15→12:00)
[2018-10-03] MEDS: Loratadine 10 MG TAB PO SCH (12:00)
--- NOTE | 2018-10-03 14:38 | PDOC.PN ---
- Subjective Encounter Start Date: 10/03/18 Encounter Start Time: 11:15 Doing great. Has some cough related to sinus drainage. Has been followed by ENT and has plans for procedural intervention at some point in the future. Was already on a Zpak and continued that. Sputum has changed from yellow to clear. Otherwise ok. - Objective Vital Signs & Weight: Vital Signs (12 hours) Temp Pulse Pulse Pulse Resp BP BP 10/03/18 12:03 98.2 F 87 18 10/03/18 12:01 102 H 89 137/83 136/87 10/03/18 07:20 98.1 F 87 18 10/03/18 04:00 98.1 F 81 16 BP Pulse Ox Pulse Ox 10/03/18 12:03 136/87 93 L 10/03/18 12:01 92 L 10/03/18 07:20 127/83 93 L 10/03/18 04:00 109/76 92 L Weight Weight 173 lb 9.6 oz Most Recent Monitor Data Heart Rate from ECG 87 NIBP 110/71 NIBP BP-Mean 84 Respiration from ECG 18 SpO2 89 I&O: 10/02/18 10/03/18 10/04/18 06:59 06:59 06:59 Intake Total 1804 240 Output Total 1095 0 Balance 709 240 Result Diagrams: 10/02/18 05:25 10/02/18 05:25 Phys Exam - Physical Examination Constitutional: NAD Respiratory: no wheezing, no rales, no rhonchi, clear to auscultation bilateral Cardiovascular: RRR, no significant murmur Gastrointestinal: soft, non-tender, no distention Musculoskeletal: no edema Sternal incision wound looks good. Psychiatric: normal affect, A&O x 3 Dx/Plan (1) Sinusitis Code(s): J32.9 - CHRONIC SINUSITIS, UNSPECIFIED Status: Acute (2) Acute coronary syndrome Code(s): I24.9 - ACUTE ISCHEMIC HEART DISEASE, UNSPECIFIED Status: Acute (3) S/P CABG x 1 Code(s): Z95.1 - PRESENCE OF AORTOCORONARY BYPASS GRAFT Status: Acute (4) Hypertension Code(s): I10 - ESSENTIAL (PRIMARY) HYPERTENSION Status: Chronic - Plan * Looks great overall. * Continue ASA, Crestor. * Flonase was added by Dr. Mix. * Continue ambulation and deep breathing with cough. * Home soon.
[2018-10-03] MEDS: Fluticasone Propionate Nasal Spray 16 gm Bottle NASAL SCH (20:37)
[2018-10-03] MEDS: Rosuvastatin 20 MG TAB PO SCH (20:38)
[2018-10-04] MEDS: Ibuprofen 800 MG TAB PO SCH ×2 (02:02→09:05)
[2018-10-04] MEDS: HYDROcodone/Acetaminophen 5/325 mg Tablet PO PRN (04:48)
[2018-10-04] MEDS ORDERED: Metoprolol Tartrate 25 MG TAB PO SCH (09:00)
[2018-10-04] MEDS: Famotidine 20 MG TAB PO SCH (09:05)
[2018-10-04] MEDS: Aspirin 325 mg Enteric Coated Tablet PO SCH (09:06)
[2018-10-04] MEDS: Fluticasone Propionate Nasal Spray 16 gm Bottle NASAL SCH (09:06)
[2018-10-04] MEDS: Polyethylene Glycol 3350 17 GM Packet PO SCH (09:09)
--- NOTE | 2018-10-04 10:27 | DIS ---
DATE OF ADMISSION: 09/29/2018 DATE OF DISCHARGE: 10/04/2018 DISPOSITION: Discharged home. FINAL DIAGNOSES: 1. Status post coronary artery bypass graft, coronary artery disease. 2. Gastroesophageal reflux disease. 3. Hypertension. DISCHARGE MEDICATIONS: 1. Nexium 40 mg a day. 2. Crestor 20 mg a day. 3. Metoprolol 12.5 mg twice a day. 4. Flonase nasal spray b.i.d. 5. Aspirin 325 mg a day. ALLERGIES: NO KNOWN DRUG ALLERGIES. DIET: Heart healthy. PENDING AT TIME OF DISCHARGE: Nothing. CODE STATUS: Full. HOSPITAL COURSE: The patient presented with symptoms consistent with angina. On 09/29/2018, he had a cardiac cath 95% proximal LAD, 20% circumflex, and 50% PDA. He was taken to the operating room on 09/30/2018, had an off-pump coronary artery bypass graft x1, left internal mammary artery to the left anterior descending. Postoperative course has been complicated by nothing more than a cough related to allergic symptomatology. On admission, comprehensive metabolic profile was normal. Cardiac enzymes were normal. Cholesterol 153, LDL 101, and HDL 45. TSH 1.6. White cell count 11.7, hemoglobin 16.6, and platelet count 245,000. His initial electrocardiogram revealed regular sinus rhythm. Nonspecific T-wave abnormality most pronounced in the anterolateral leads. During his hospital stay, he was seen by Dr. Magan Merino, Cardiology and Dr. Juvenal Mix, Cardiovascular Surgery, who was listed as the admitting doctor of record. His chest x-ray done on 10/02/2018 reveals modest bilateral pleural effusions, most prominent on the left. No cardiomegaly, pulmonary vascular congestion. PHYSICAL EXAMINATION: GENERAL: Today, he is feeling well. VITAL SIGNS: Stable. Blood pressure 125/82, pulse 84, and respirations 16. CHEST: Clear. HEART: Had a regular rate and rhythm. DISCHARGE INSTRUCTIONS: He is being discharged on the aforementioned medicines. He will be going to cardiac rehab in [place]. He will follow up with Dr. Walt Wells, Dr. Juvenal Mix, and Dr. Maagn Merino. Prescriptions have been written. Job ID: [id number]
--- NOTE | 2018-10-04 11:25 | DIS ---
DATE OF ADMISSION: 09/29/2018 DATE OF DISCHARGE: 10/04/2018 This is a gentleman, admitted with chest and neck pain. Negative cardiac enzymes and biphasic T-waves in V2. He was taken to the micro lab analyst, where he was found to have a high-grade stenosis in his LAD that was not felt to be amenable to stenting. He was taken to the operating room that day, where he underwent an off-pump single-vessel bypass with ACOSTA to LAD. His postoperative course was uneventful except for some upper respiratory symptoms, which he has been having for some time. He will be discharged home on metoprolol 12.5 b.i.d., Crestor 20 a day, aspirin 1 a day, and Flonase nasal spray. Discharge and followup instructions were given. Job ID: [id number]
[2018-10-04] MEDS: Loratadine 10 MG TAB PO SCH (12:24)
[2018-10-04 13:06] VITALS: TEMP 98.6
[2018-10-04 13:44] LABS: Actual Bicarbonate (HCO3a) 20.7 mEq/L (22-28); Analyzer IN Cardio OR; Base Excess (BEa) -5.5 mEq/L (-2.0 to +3.0); CO2 Tension 43.2 mmHg (35.0-45.0); Calcium, Ionized 1.05 mmol/L (1.12-1.30); Carboxyhemoglobin (COHb) 0.3 gm% (0.0-3.0); Hemoglobin (Hb) 13.9 g/dL (14.0-18.0); O2 Tension (PaO2) 434.8 mmHg (80.0-100.0); Potassium - ABG Lab 3.86 mmol/L (3.70-5.30)
[2018-10-04 13:44] LABS: Actual Bicarbonate (HCO3a) 19.4 mEq/L (22-28); Analyzer IN Cardio OR; Base Excess (BEa) -6.2 mEq/L (-2.0 to +3.0); CO2 Tension 38.9 mmHg (35.0-45.0); Carboxyhemoglobin (COHb) 0.4 gm% (0.0-3.0); Hemoglobin (Hb) 15.1 g/dL (14.0-18.0); O2 Tension (PaO2) 395.7 mmHg (80.0-100.0); pH, Arterial 7.32 (7.35-7.45)
[2018-10-04 13:50] LABS: Puncture Site ALINE
[2018-10-04 13:50] LABS: Puncture Site ALINE
[2018-10-04 15:17] VITALS: BP 129/83
== END 2018-10-04 12:45 | disposition home or self-care (01) | DRG 234 ==
LOC: ERS 21:35 → OBSVTOIN 23:00 → 2SW 23:00 → CCU 09-30 12:43 → 2NO 10-02 06:30
PROVIDERS: ADMIT Family Medicine; ATTEND Family Medicine
PROC: 4A023N7 Measurement of Cardiac Sampling and Pressure, Left Heart, Percutaneous Approach (ICD-10-PCS; 2018-09-29)
PROC: B2111ZZ Fluoroscopy of Multiple Coronary Arteries using Low Osmolar Contrast (ICD-10-PCS; 2018-09-29)
PROC: B2151ZZ Fluoroscopy of Left Heart using Low Osmolar Contrast (ICD-10-PCS; 2018-09-29)
PROC: 02100Z9 Bypass Coronary Artery, One Artery from Left Internal Mammary, Open Approach (ICD-10-PCS; principal; 2018-09-30)
PROC: 05H533Z Insertion of Infusion Device into Right Subclavian Vein, Percutaneous Approach (ICD-10-PCS; 2018-09-30)
DX: I25.110 Atherosclerotic heart disease of native coronary artery with unstable angina pectoris (principal); I24.9 Acute ischemic heart disease, unspecified; J90 Pleural effusion, not elsewhere classified; I10 Essential (primary) hypertension; K21.9 Gastro-esophageal reflux disease without esophagitis; E78.00 Pure hypercholesterolemia, unspecified; E78.5 Hyperlipidemia, unspecified; J32.9 Chronic sinusitis, unspecified; Z79.899 Other long term (current) drug therapy; Z87.891 Personal history of nicotine dependence; Z98.890 Other specified postprocedural states
CPT/HCPCS: 36415; 36416; 36430; 71045; 76942; 80048; 80053; 80061; 82550; 82805; 83036; 83690; 84443; 84484; 85025; 85610; 85730; 86850; 86900; 86901; 93005; 93010; 93458; 93798; 94002; 94150; 99152; 99153; C1769; J0690; J1200; J1644; J1720; J1815; J1885; J2001; J2250; J2405; J2440; J2704; J2720; J3010; J3370; J3475; J3490; J7050; P9045; Q9967; S0017; S0028

== ENCOUNTER 2019-04-05 10:21 | Emergency (ER) | payer BC ==
[2019-04-05 11:22] LABS: #Basophils 0.1 thou/uL (0.0-0.2); #Eosinphils 0.3 thou/uL (0.0-0.7); #Lymphocytes 2.1 thou/uL (1.20-3.40); #Monocytes 1.1 thou/uL (0.11-0.59); #Neutrophils 8.9 thou/uL (1.40-6.50); %Basophils 0.4 % (0.0-1.0); %Eosinophils 2.1 % (0.0-10.0); %Lymphocytes 16.9 % (21.0-51.0); %Monocytes 8.7 % (0.0-10.0); %Neutrophils 71.9 % (42.0-75.0); Hemoglobin 16.2 g/dL (14.0-18.0); Mean Corpuscular HGB CONC 33.3 g/dL (32.0-36.0); Mean Corpuscular Hemoglobin 32.6 pg (27.0-31.0); Mean Corpuscular Volume 97.7 fL (78.0-98.0); Mean Platelet Volume 8.4 fL (7.4-10.4); Platelet Count 238 thou/uL (130-400); RBC Distribution Width 11.7 % (11.5-14.5); Red Blood Cell (RBC) Count 4.99 mill/uL (4.70-6.10); White Blood Cell (WBC) Count 12.3 thou/uL (4.8-10.8)
[2019-04-05 11:25] LABS: ALT (SGPT) 25 U/L (8-55); AST (SGOT) 25 U/L (5-34); Albumin 4.7 g/dL (3.5-5.0); Alkaline Phosphatase 79 U/L (40-110); Anion Gap 13 mmol/L (10-20); BUN (Urea Nitrogen) 14 mg/dL (8.9-20.6); Bilirubin, Total 0.5 mg/dL (0.2-1.2); Calc. Creatinine Clearance 0 mL/min (70-130); Calcium 9.3 mg/dL (7.8-10.44); Carbon Dioxide 26 mmol/L (22-29); Chloride 105 mmol/L (98-107); Estimated GFR-MDRD 84; Globulin 2.9 g/dL (2.4-3.5); Glucose 117 mg/dL (70-105); Potassium 4.3 mmol/L (3.5-5.1); Protein, Total 7.6 g/dL (6.0-8.3); Sodium 140 mmol/L (136-145)
--- NOTE | 2019-04-05 11:30 | CT ---
CT Stone Protocol: 04/05/2019 10:32 AM HISTORY: Right flank pain COMPARISON: None. TECHNIQUE: Multiple contiguous axial images were obtained and a CT of the abdomen and pelvis without IV contrast . Coronal and sagittal reformats were performed. FINDINGS: This examination is limited for the evaluation of solid organs and vascular structures due to the lac k of intravenous contrast. Lower Chest: within normal limits. Abdomen: Liver: within normal limits. Bile Ducts: Normal caliber. Gallbladder: No calcified gallstones. Normal caliber wall. Pancreas: within normal limits. Spleen: within normal limits. Adrenals: within normal limits. Kidneys: Mild right hydronephrosis. There is a 1.9 cm hypodensity in the left kidney which may repres ent a parapelvic cyst. Pelvis: Reproductive Organs: No pelvic masses. Ureters: 4 mm proximal right ureteral calcification with mild right hydroureter Bladder: within normal limits. Bowel: Normal caliber. Normal appendix. Mesenteric Lymph Nodes: No enlarged mesenteric lymph nodes. Peritoneum: No ascites or free air, no fluid collection. Vessels: Normal caliber aorta Retroperitoneum: within normal limits. Abdominal Wall: within normal limits. Bones: Degenerative changes in the spine. IMPRESSION: 1. Proximal right ureteral calcification with mild right hydronephrosis 2. Parapelvic left renal cyst.
[2019-04-05] MEDS ORDERED: Ondansetron PF 4 MG/2 ML Vial ONE (13:01)
[2019-04-05] MEDS ORDERED: Ketorolac Tromethamine 30 MG/ML VIAL ONE (13:01)
[2019-04-05] MEDS ORDERED: Ondansetron ODT 4 MG TAB ONE (13:03)
[2019-04-05 13:21] LABS: Bilirubin Negative (Negative); Blood, Urine 3+ (Negative); Clarity Turbid (Clear); Glucose, Urine (Dipstick) Normal (Negative); Leukocyte Negative Leu/uL (Negative); Nitrite Negative (Negative); Protein, Urine (Dipstick) 30 mg/dL (Neg-Trace); RBC/HPF Greater than 50 HPF (0-3); Squamous Epithelial None Seen HPF (0-3); Urobilinogen Normal mg/dL (Less than 2)
[2019-04-05 13:29] LABS: Bacteria/HPF 1+ HPF (None Seen); WBC/HPF 0-3 HPF (0-3)
== END 2019-04-05 13:45 | disposition home or self-care (01) ==
LOC: ERS 10:21
DX: N13.2 Hydronephrosis with renal and ureteral calculous obstruction (principal); I25.10 Atherosclerotic heart disease of native coronary artery without angina pectoris; I25.2 Old myocardial infarction; I10 Essential (primary) hypertension; Z87.891 Personal history of nicotine dependence; Z79.899 Other long term (current) drug therapy; Z79.82 Long term (current) use of aspirin
CPT/HCPCS: 36415; 74176; 80053; 81003; 81015; 85025; 87086; 96374; J1885; J2405; Q0162